=== PATIENT | female | born 1955 | race Caucasian/White ===

== ENCOUNTER 2016-09-07 23:29 | Emergency (ER) | payer OTHER ==
[~2016-09-07] VITALS: Ht 160 cm; Wt 87.0 kg
[~2016-09-07 23:29] MED LIST: ANTIVERT25 MG PO; NAPROSYN500 MG PO; NO HOME MEDS; REGLAN10 MG PO; VALIUM5 MG PO
[2016-09-08 00:23] LABS: EOSINOPHIL (%) 1.2 % (0-5); EOSINOPHIL COUNT 0.1 K/uL (0-0.3); HEMATOCRIT 37.7 % (36.0-46.0); IMMATURE GRANULOCYTE (%) 0.7 % (0.0-0.7); IMMATURE GRANULOCYTE COUNT 0.1 K/uL; INSTRUMENT ABS NEUTROPHIL CT 6.4 K/uL; LYMPHOCYTE COUNT 1.4 K/uL (1.0-2.8); MCH 30.4 PG (29.0-34.0); MCHC 32.9 G/DL (30.0-36.0); MCV 92.4 FL (83-99); MEAN PLAT.VOLUME 9.4 uM^3 (9.5-12.4); MONOCYTE (%) 7.4 % (3-12); MONOCYTE COUNT 0.6 K/uL (0-0.8); NEUTROPHIL (%) 73.8 % (45-76); NEUTROPHIL COUNT 6.4 K/uL (1.8-6.4); PLATELET COUNT 212 K/uL (156-360); RBC DIS.WIDTH-CV 12.8 % (11.8-14.6); RBC DIS.WIDTH-SD 43.7 % (39-53); RED BLOOD COUNT 4.08 M/uL (3.80-5.20); WHITE BLOOD COUNT 8.6 K/uL (4.1-10.2)
[2016-09-08 00:31] LABS: CHLORIDE 102 mEq/L (99-109); POTASSIUM 3.9 mEq/L (3.7-5.4); SODIUM 139 mEq/L (136-147)
[2016-09-08 00:33] LABS: GLUCOSE 141 mg/dL (70-99)
[2016-09-08 00:35] LABS: ANION GAP 9 MEQ/L (2-14)
[2016-09-08 00:37] LABS: GFR ESTIMATE (CALCULATED) 53 mL/min/
[2016-09-08 00:38] LABS: UREA NITROGEN (BUN) 24 mg/dL (9-23)
[2016-09-08 00:40] LABS: LIPASE 30 U/L (1.0-51.0)
[2016-09-08] MEDS ORDERED: PERCOCET 5/31 TABLET PO (01:50)
[2016-09-08] MEDS ORDERED: ZOFRAN8 MG PO (01:50)
[2016-09-08 02:20] VITALS: BP 168/54
== END 2016-09-08 02:23 | disposition home or self-care (01) ==
LOC: EME → EDBD 23:29 → EME 23:29
PROVIDERS: Emergency Medicine
DX: S42.294A Other nondisplaced fracture of upper end of right humerus, initial encounter for closed fracture (principal); S80.212A Abrasion, left knee, initial encounter; S50.311A Abrasion of right elbow, initial encounter; W01.0XXA Fall on same level from slipping, tripping and stumbling without subsequent striking against object, initial encounter; Y93.01 Activity, walking, marching and hiking; Y92.008 Other place in unspecified non-institutional (private) residence as the place of occurrence of the external cause; Z23 Encounter for immunization
CPT/HCPCS: 73030; 73080; 73110; 80048; 83690; 85025; 99281; 99284; J1885; J2270; J2405; J3010; J7030